=== PATIENT | male | born 1955 | race Two or more races ===

== ENCOUNTER 2023-12-18 20:44 | Emergency (ER) | payer OTHER ==
[2023-12-18 20:54] VITALS: BP 114/79; PULSE 72; RESP 20; TEMP 98.6; BMI 25.0
[2023-12-18] MEDS ORDERED: TETRACAINE 0.5% OPHTH SOLN 2 ML BOTTLE ONE (21:04)
[2023-12-18] MEDS ORDERED: FLUORESCEIN NA 1 EA STRIP ONE (21:04)
[2023-12-18] MEDS: TETRACAINE 0.5% OPHTH SOLN 2 ML BOTTLE OU ONE (21:16)
[2023-12-18] MEDS: FLUORESCEIN NA 1 EA STRIP OU ONE (21:16)
[2023-12-18] MEDS ORDERED: ERYTHROMYCIN 0.5% OPHTHALMIC OINTMENT 3.5 GM TUBE ONE (21:24)
[2023-12-18] MEDS: ERYTHROMYCIN 0.5% OPHTHALMIC OINTMENT 3.5 GM TUBE OD ONE (21:40)
[2023-12-19] MEDS ORDERED: ERYTHROMYCIN 0.5% OPHTHALMIC OINTMENT 3.5 GM TUBE OD ONE (21:12)
== END 2023-12-18 21:41 | disposition home or self-care (01) ==
LOC: JER 20:44 → JERFT 20:44
DX: S05.01XA Injury of conjunctiva and corneal abrasion without foreign body, right eye, initial encounter (principal); W21.09XA Struck by other hit or thrown ball, initial encounter; Y93.73 Activity, racquet and hand sports
CPT/HCPCS: 99283-25